=== PATIENT | female | born 1990 | race Caucasian/White ===

== ENCOUNTER → 2018-04-25 | Outpatient (CLI) | payer OTHER | LOC: HPND 12:56 | PROVIDERS: ATTEND Obstetrics & Gynecology | DX: O35.8XX0 Maternal care for other (suspected) fetal abnormality and damage, not applicable or unspecified (principal) | CPT/HCPCS: 76811; 76825; 76827; 93325 ==

== ENCOUNTER 2018-08-21 20:41 | Inpatient (IN) ==
[2018-08-21] MEDS ORDERED: Oxytocin 30 Units/500ml Premix 30 UNITS/500 ML BAG IV.CONT PRN (21:44)
[2018-08-21] MEDS ORDERED: fentaNYL Citrate Inj 100 MCG/2 ML Ampul IV.PUSH PRN ×2 (21:59)
[2018-08-21] MEDS ORDERED: Oxytocin 30 Units/500ml Premix 30 UNITS/500 ML BAG IV.SIG ONE (21:59)
[2018-08-21] MEDS ORDERED: Naloxone Inj 0.4 MG/ML Vial IV.PUSH PRN (21:59)
[2018-08-21] MEDS ORDERED: Sod Chloride 0.9% Inj 1,000 ML IV.CONT PRN (21:59)
[2018-08-21] MEDS ORDERED: Sodium Chlor 0.9% Inj 500 ML IV.SIG PRN (21:59)
[2018-08-21] MEDS ORDERED: Citric Acid/Sodium Citrate Liq 30 ML UDC PO SCH (22:00)
[2018-08-21 22:04] LABS: Baso # (Auto) 0.1 th/mm3 (0.0-0.2); Baso % (Auto) 0.5 % (0.0-2.0); Eos # (Auto) 0.1 th/mm3 (0.0-0.4); Hematocrit 29.9 % (35.0-46.0); Hemoglobin 9.9 gm/dL (11.6-15.3); Lymph # (Auto) 2.1 th/mm3 (1.0-4.8); Lymph % (Auto) 21.1 % (9.0-44.0); Mean Corpuscular HGB Conc 33.1 % (32.0-36.0); Mean Corpuscular Hemoglobin 26.7 pg (27.0-34.0); Mean Corpuscular Volume 80.6 fL (80.0-100.0); Mean Platelet Volume 7.7 fL (7.0-11.0); Mono # (Auto) 0.8 th/mm3 (0.0-0.9); Mono % (Auto) 7.8 % (0.0-8.0); Neut # (Auto) 6.9 th/mm3 (1.8-7.7); Neut % (Auto) 69.6 % (16.0-70.0); Platelet Count 177 th/mm3 (150-450); Red Blood Count 3.71 mil/mm3 (4.00-5.30); Red Cell Distribution Width 14.1 % (11.6-17.2); White Blood Count 9.9 th/mm3 (4.0-11.0)
[2018-08-21 22:21] LABS: Bilirubin,Urine Negative (Negative); Clarity,Urine Clear (Clear); Color,Urine Straw (Yellw/Straw); Glucose,Urine (UA) Negative (Negative); Leukocyte Esterase,Urine Trace (Negative); Mucus,Urine Few /lpf (Occasional); Nitrite,Urine Negative (Negative); Specific Gravity,Urine 1.006 (1.002-1.035); Squamous Epithelial Cell,Urine 2 /hpf (0-5)
[2018-08-21 22:24] LABS: Amphetamine Urine With Conf Neg (Neg); Benzodiazepine Urine With Conf Neg (Neg)
[2018-08-22] MEDS ORDERED: fentaNYL 2MCG-Bupiv 0.125% Epi 150 ML EPIDURAL ONE (02:04)
[2018-08-22] MEDS ORDERED: Lidocaine PF 1.5% Inj 20 ML Ampule ONE (02:26)
[2018-08-22] MEDS ORDERED: Lidocaine PF 1% Inj 10 ML Amp ONE (02:26)
[2018-08-22] MEDS ORDERED: Lidocaine 2%/Epinephrine 1:200,000 PF Inj 20 ML Vial ONE (02:27)
[2018-08-22] MEDS ORDERED: Penicillin G Potassium Inj 5,000,000 UNIT in Sodium Chloride 0.9% Inj 100 ML IV.SIG ONE (04:00)
[2018-08-22] MEDS ORDERED: fentaNYL 2MCG-Bupiv 0.125% Epi 150 ML EPIDURAL PRN (04:07)
[2018-08-22] MEDS ORDERED: fentaNYL Citrate Inj 100 MCG/2 ML Ampul EPIDURAL ONE (04:07)
[2018-08-22] MEDS ORDERED: Lidocaine 1% Inj 50 ML Vial ONE (06:26)
[2018-08-22] MEDS ORDERED: Ketorolac Inj 30 MG/ML (IVP) Vial IM ONE (07:25)
[2018-08-22] MEDS ORDERED: Lidocaine 2%/Epinephrine 1:200,000 PF Inj 20 ML Vial INFILTRATN ONE (07:25)
[2018-08-22] MEDS ORDERED: Phenylephrine/NS 1000 MCG/10ML Syringe IV.PUSH ONE (07:25)
[2018-08-22] MEDS ORDERED: Morphine Sulfate PF Inj 5 MG/10 ML Ampul ONE (07:27)
[2018-08-22] MEDS ORDERED: Penicillin G Potassium Inj 2,500,000 UNIT in Sodium Chlor 0.9% Inj 100 ML IV.SIG SCH (08:00)
[2018-08-22] MEDS ORDERED: fentaNYL Citrate Inj 100 MCG/2 ML Ampul ONE (08:04)
[2018-08-22 08:07] LABS: Cord Arterial Blood HCO3 23.1
[2018-08-22] MEDS ORDERED: Oxytocin 30 Units/500ml Premix 30 UNITS/500 ML BAG IV.SIG ONE (08:48)
--- NOTE | 2018-08-22 08:54 | P.OP ---
- Preoperative Diagnosis (1) Previous section complicating (2) Non-reassuring heart rate or rhythm affecting management of fetus - Postoperative Diagnosis (1) Non-reassuring heart rate or rhythm affecting management of fetus (2) Previous section complicating Date of procedure: 08/22/18 Procedure: Repeat LTCS Anesthesia: epidural Surgeon: Misha Husain MD Estimated blood loss (mL): 600 Operation and Findings: Counts were correct Findings viable male with good tone. Apgars were 8/9 weight was 6/ 12 Normal uterus normal fallopian tubes normal ovaries normal cul-de-sac Some thick adhesions to the anterior uterine wall which were taken down Procedure in detail Taken to the operating room identified by name band and verbally and given a spinal anesthetic. She was prepped and draped in the usual sterile manner for a section. A time out was taken. The old incision was excised sharply and the Pfannenstiel incision was made and carried down to the fascia the fascia was nicked bilaterally and the fascia was taken off the rectus muscle by blunt and sharp dissection. The rectus muscles were spread bluntly and the peritoneum was entered under direct vision. The incision was extended with care to avoid the urinary bladder. A bladder blade was placed and a bladder flap was created in the usual fashion. There was some thick adhesions to the anterior uterine wall which were taken down just prior to the performing the bladder flap. The lower uterine segment was then incised sharply in a transverse manner and taken down in the midline until the uterine cavity was entered. The incision was extended with the surgeon's fingers. The vertex was grasped and with fundal pressure the vertex was delivered without difficulty hypopharynx and nasopharynx were suctioned and the remainder of the delivered without difficulty. The cord clamping was delayed 45 seconds and then the cord was clamped cut and the was handed over to the resuscitation team cord blood was obtained the placenta was removed manually and the uterus was curettaged twice with a wet lap. The uterus was delivered from the abdomen. The uterine incision was repaired with 0 Vicryl in a running fashion in 2 layers the second layer imbricating the first. The cul- de-sac and gutters were cleaned of blood and debris the uterus was delivered back into the abdomen. The rectus muscles were reapproximated with 0 Vicryl in a running the fascia was repaired with 0 Vicryl from lateral to midline bilaterally. The subcutaneous layer was repaired with a 3-0 Vicryl. The skin was repaired with a 4-0 Monocryl in a subcuticular manner. Patient tolerated the procedure well and went to recovery room in good condition.
[2018-08-22] MEDS ORDERED: Oxytocin 30 Units/500ml Premix 30 UNITS/500 ML BAG ONE (09:29)
--- NOTE | 2018-08-22 12:04 | P.HP ---
History of Present Illness Service: labor and delivery Primary Care Physician: No Primary Care Physician Chief Complaint: admitted for induction of labor History of Present Illness: previous c section, now 40 + weeks being admitted for low dose pitocin induction GBS + cervix in office on 08/20/18 was - Diagnosis (1) Term (2) Previous section complicating Inpatient Certification: I certify that the inpatient services were ordered in accordance with Medicare regulations governing the order. This includes certification that hospital inpatient services are reasonable and necessary and in the case of services not specified as inpatient-only under 42 CFR 419.22(n), that they are appropriately provided as inpatient services in accordance to with the 2-midnight benchmark under 43 CFR 412.3(e) Estimated Total Length of Stay (Days): 3 Plans for Post Hospital Care: Home Review of Systems All other systems reviewed negative except as stated in HPI [facility] - History History Provided By: Medical Record - Medical History Medical History: Medical History (Last Updated 08/22/18 @ 11:59 by PETER Verde) Anemia - Surgical History Surgical History: Surgical History (Last Updated 08/22/18 @ 11:59 by PETER Verde) Previous section - Family History Family History: Family History (Last Updated 08/22/18 @ 11:59 by PETER Verde) Father Hypertension Aunt Breast cancer Colon cancer Melanoma - Social History I have reviewed the patient's Social History: Yes - Tobacco History Second Hand Smoke Exposure: No Tobacco Use In Past 30 Days: No Smoking Status: Never smoker - Alcohol History How Often Do You Have a Drink Containing Alcohol: Never - Travel History History of Recent Travel: No Recent Travel in the [place] Within the Last 8 Weeks: No Recent Travel Out of the Country Within the Last 8 Weeks: No Medications and Allergies Active Medications: Active Medications Diphtheria/Pertussis/Tetanus Vacc (Boostrix Vaccine Inj) 0.5 ml IM .ONCE ONE Stop: 08/23/18 16:01 Ephedrine Sulfate (Ephedrine/Ns Syringe) 10 mg IV.PUSH UNSCH PRN PRN Reason: SEE LABEL COMMENTS Stop: 08/23/18 04:07 Fentanyl/Bupivacaine/Sodium Chlor (Fentanyl 2 Mcg-Bupiv 0.125% Epi) 150 mls @ 12 mls/hr EPIDURAL PRN PRN PRN Reason: for Labor Pain Cefazolin Sodium 1,000 mg/ (Sodium Chloride) 100 mls @ 200 mls/hr IV.SIG Q8H [facility] Stop: 08/22/18 19:29 Last Admin: 08/22/18 11:32 Dose: 200 mls/hr Lactated Ringer's (Lr 1000 Ml Inj) 1,000 mls @ 100 mls/hr IV.CONT .Q10H [facility] Stop: 08/23/18 09:47 Oxytocin (Pitocin 30 Units/Ns 500 Ml Premix) 30 units in 500 mls @ 100 mls/hr IV.SIG ONCE ONE Stop: 08/22/18 13:47 Last Admin: 08/22/18 09:48 Dose: 100 mls/hr Oxytocin (Pitocin 30 Units/Ns 500 Ml Premix) 30 units in 500 mls @ 100 mls/hr IV.SIG UNSCH PRN PRN Reason: Heavy bleeding Ibuprofen (Motrin) 800 mg PO Q8H PRN PRN Reason: cramping Measles/Mumps/Rubella Vaccine Live (M-M-R Ii Vaccine Inj) 0.5 ml SQ .ONCE ONE Stop: 08/23/18 16:01 Miscellaneous Information (Misc Information) 1 each OTHER UNSCH PRN PRN Reason: SEE LABEL COMMENTS Stop: 08/23/18 04:07 Miscellaneous Information (Misc Information) 1 each OTHER UNSCH PRN PRN Reason: SEE LABEL COMMENTS Stop: 08/23/18 04:07 Oxycodone/Acetaminophen (Percocet 5/325 Mg) 1 tab PO Q4H PRN PRN Reason: PAIN SCALE 3 TO 5 Oxycodone/Acetaminophen (Percocet 5/325 Mg) 2 tab PO Q4H PRN PRN Reason: PAIN SCALE 6 TO 10 Vit/Calcium/Iron/Folic Ac (Stuartnatal Plus 3) 1 tab PO DAILY [facility] Senna/Docusate Sodium (Radha-Colace) 2 tab PO Q12H PRN PRN Reason: CONSTIPATION Sodium Chloride (Ns Flush) 2 ml IV.FLUSH BID R[facility]AN Sodium Chloride (Ns Flush) 2 ml IV.FLUSH PRN PRN PRN Reason: FLUSH AFTER USING IV ACCESS Zolpidem Tartrate (Ambien) 5 mg PO HS PRN PRN Reason: INSOMNIA Allergies Allergy/AdvReac Type Severity Reaction Status Date / Time Penicillins AdvReac Mild Rash Verified 08/21/18 21:32 Home Medications Medication Instructions Recorded Confirmed Type PNV #[id number] acid-[id number] 1 tab PO DAILY 08/21/18 08/21/18 History Exam Vital signs: Vital Signs 08/21/18 21:05 08/21/18 22:44 08/21/18 22:50 Temperature 98.6 F Pulse Rate 93 H 72 Respiratory Rate 18 18 Blood Pressure 120/73 116/65 08/21/18 23:00 08/22/18 00:51 08/22/18 00:52 Temperature 98.6 F 98.3 F Pulse Rate 71 Respiratory Rate 18 Blood Pressure 125/76 08/22/18 01:00 08/22/18 01:15 08/22/18 01:30 Temperature Pulse Rate 85 89 Respiratory Rate 18 Blood Pressure 130/75 128/80 08/22/18 02:02 08/22/18 02:25 08/22/18 02:35 Temperature Pulse Rate 91 H 84 84 Respiratory Rate 18 Blood Pressure 127/82 134/77 145/76 H 08/22/18 02:39 08/22/18 02:40 08/22/18 02:45 Temperature Pulse Rate 79 77 Respiratory Rate 18 Blood Pressure 127/71 119/67 08/22/18 02:47 08/22/18 02:57 08/22/18 02:59 Temperature Pulse Rate 79 78 Respiratory Rate 18 Blood Pressure 114/46 L 103/80 08/22/18 03:10 08/22/18 03:15 08/22/18 03:31 Temperature Pulse Rate 84 83 Respiratory Rate 18 Blood Pressure 113/72 81/43 L 08/22/18 03:36 08/22/18 03:38 08/22/18 03:40 Temperature 98.6 F Pulse Rate 68 92 H Respiratory Rate 18 Blood Pressure 103/74 08/22/18 04:30 08/22/18 04:36 08/22/18 04:40 Temperature Pulse Rate 84 86 89 Respiratory Rate Blood Pressure 101/56 L 105/50 L 08/22/18 04:45 08/22/18 05:01 08/22/18 05:05 Temperature Pulse Rate 81 80 Respiratory Rate 18 18 Blood Pressure 112/56 L 08/22/18 05:10 08/22/18 05:31 08/22/18 05:40 Temperature Pulse Rate 80 85 87 Respiratory Rate 18 Blood Pressure 115/49 L 08/22/18 05:42 08/22/18 06:12 08/22/18 06:21 Temperature 100.0 F H 100.6 F H Pulse Rate 95 H Respiratory Rate 18 Blood Pressure 119/67 08/22/18 06:35 08/22/18 06:45 08/22/18 07:05 Temperature Pulse Rate 103 H 105 H 83 Respiratory Rate 18 18 Blood Pressure 116/68 118/66 08/22/18 07:13 08/22/18 08:45 08/22/18 09:00 Temperature 100.9 F H 99.3 F Pulse Rate 67 78 Respiratory Rate 16 16 Blood Pressure 92/49 L 110/55 L 08/22/18 09:15 08/22/18 09:30 08/22/18 09:45 Temperature 99.4 F Pulse Rate 70 71 69 Respiratory Rate 16 16 16 Blood Pressure 108/55 L 106/39 L 104/56 L 08/22/18 10:24 Temperature 99.3 F Pulse Rate 66 Respiratory Rate 18 Blood Pressure 106/59 L Intake & Output 08/21/18 08/22/18 08/22/18 18:59 06:59 18:59 Intake Total 1000 / 1000 Balance 1000 / 1000 Weight 60.972 kg Intake: IV 1000 / 1000 LR 1000 mL Inj 1,000 ML @ 125 1000 / 1000 mls/hr IV.CONT .Q8H [facility] Rx#: [id number] Other: Weight On Admission 60.972 kg Narrative: pt seen post surgery by tomer gomes - Constitutional no acute distress - Routine HEENT Exam Head: Present: normocephalic ENT: Present: mucous membranes moist - Routine Respiratory Exam Present: CTA bilaterally - Routine Cardiovascular Exam Present: RRR, S1, S2 - Routine Abdominal Exam Present: soft, normoactive bowel sounds Comments: with dressing post surgery - Routine Skin Exam Present: intact Comments: pale - Routine Neurological Exam Present: alert, oriented X3 Results - Labs CBC & Chem 7: 08/23/18 05:12 Labs: Laboratory Results - last 24 hr 08/21/18 08/21/18 08/21/18 21:30 21:30 21:30 WBC 9.9 RBC 3.71 L Hgb 9.9 L Hct 29.9 L MCV 80.6 MCH 26.7 L MCHC 33.1 RDW 14.1 Plt Count 177 MPV 7.7 Neut % (Auto) 69.6 Lymph % (Auto) 21.1 [place] % (Auto) 7.8 Eos % (Auto) 1.0 Baso % (Auto) 0.5 Neut # (Auto) 6.9 Lymph # (Auto) 2.1 [place] # (Auto) 0.8 Eos # (Auto) 0.1 Baso # (Auto) 0.1 WBC Differential . Differential Comment Auto diff final Puncture Site Cord ABG pH Cord ABG pCO2 Cord ABG pO2 Cord ABG HCO3 Cord ABG Base Excess Cord ABG O2 Sat Urine Color Urine Clarity Urine pH Ur Specific [place] Urine Protein Urine Glucose (UA) Urine Ketones Urine Occult Blood Urine Nitrate Urine Bilirubin Urine Urobilinogen Ur Leukocyte Esterase Urine RBC Urine WBC Ur Squamous Epith Cells Urine Mucus Micro UA Comment Ur Microscopic Review Urine Culture Comments Urine Opiates Screen Neg Ur Barbiturates Screen Neg Ur Amphetamine Screen Neg U Benzodiazepines Scrn Neg Urine Cocaine Screen Neg U Cannabinoids Screen Neg Blood Type A Positive Blood Type Recheck Required 08/21/18 08/22/18 21:30 07:55 WBC RBC Hgb Hct MCV MCH MCHC RDW Plt Count MPV Neut % (Auto) Lymph % (Auto) [place] % (Auto) Eos % (Auto) Baso % (Auto) Neut # (Auto) Lymph # (Auto) [place] # (Auto) Eos # (Auto) Baso # (Auto) WBC Differential Differential Comment Puncture Site Cord blood Cord ABG pH 7.256 Cord ABG pCO2 53.8 Cord ABG pO2 13.2 Cord ABG HCO3 23.1 Cord ABG Base Excess -3.0 Cord ABG O2 Sat 17.2 Urine Color Straw Urine Clarity Clear Urine pH 6.0 Ur Specific [place] 1.006 Urine Protein Negative Urine Glucose (UA) Negative Urine Ketones Negative Urine Occult Blood Small H Urine Nitrate Negative Urine Bilirubin Negative Urine Urobilinogen Less than 2 Ur Leukocyte Esterase Trace H Urine RBC Less than 1 Urine WBC 2 Ur Squamous Epith Cells 2 Urine Mucus Few H Micro UA Comment Culture not ind Ur Microscopic Review Not Reportable Urine Culture Comments Culture not ind Urine Opiates Screen Ur Barbiturates Screen Ur Amphetamine Screen U Benzodiazepines Scrn Urine Cocaine Screen U Cannabinoids Screen Blood Type Blood Type Recheck Caprini VTE Risk Assessment Caprini VTE Risk Assessment: No/Low Risk (score <= 1) Caprini Risk Assessment Model: Point Value = 1 Point Value = 2 Point Value = 3 Point Value = 5 Age 41-60 Minor surgery BMI > 25 kg/m2 Swollen legs Varicose veins or History of unexplained or recurrent spontaneous Oral contraceptives or hormone replacement Sepsis (< 1 month) Serious lung disease, including pneumonia (< 1 month) Abnormal pulmonary function Acute myocardial infarction Congestive heart failure (< 1 month) History of inflammatory bowel disease Medical patient at bed rest Age 61-74 Arthroscopic surgery Major open surgery (> 45 min) Laparoscopic surgery (> 45 min) Malignancy Confined to bed (> 72 hours) Immobilizing plaster cast Central venous access Age >= 75 History of VTE Family history of VTE Factor V Leiden Prothrombin [id number] Lupus anticoagulant Anticardiolipin antibodies Elevated serum homocysteine Heparin-induced thrombocytopenia Other congenital or acquired thrombophilia Stroke (< 1 month) Elective arthroplasty Hip, pelvis, or leg fracture Acute spinal cord injury (< 1 month) Prophylaxis Regimen: Total Risk Factor Score Risk Level Prophylaxis Regimen 0-1 Low Early ambulation 2 Moderate Order ONE of the following: *Sequential Compression Device (SCD) *Heparin 5000 units SQ BID 3-4 Higher Order ONE of the following medications: *Heparin 5000 units SQ TID *Enoxaparin/Lovenox 40 mg SQ daily (WT < 150 kg, CrCl > 30 mL/min) *Enoxaparin/Lovenox 30 mg SQ daily (WT < 150 kg, CrCl > 10-29 mL/min) *Enoxaparin/Lovenox 30 mg SQ BID (WT < 150 kg, CrCl > 30 mL/min) AND/OR *Sequential Compression Device (SCD) 5 or more Highest Order ONE of the following medications: *Heparin 5000 units SQ TID (Preferred with Epidurals) *Enoxaparin/Lovenox 40 mg SQ daily (WT < 150 kg, CrCl > 30 mL/min) *Enoxaparin/Lovenox 30 mg SQ daily (WT < 150 kg, CrCl > 10-29 mL/min) *Enoxaparin/Lovenox 30 mg SQ BID (WT < 150 kg, CrCl > 30 mL/min) AND *Sequential Compression Device (SCD) Assessment and Plan - Assessment (1) Term Code(s): Z34.80 - Encounter for supervision of other normal , unspecified trimester Status: Acute (2) Previous section complicating Code(s): O34.219 - Maternal care for unspecified type scar from previous delivery Status: Acute - Plan attempted, repeat c section preformed Code Status: full code Discharge Planning: consider dc in 2 days
[2018-08-22] MEDS ORDERED: Oxytocin 30 Units/500ml Premix 30 UNITS/500 ML BAG IV.SIG PRN (13:48)
[2018-08-22] MEDS: Prenatal Vit/Ca/Iron/Folic Acid Tablet PO SCH (13:58)
[2018-08-22] MEDS ORDERED: Zolpidem Tartrate 5 MG Tablet PO PRN (21:00)
[2018-08-22] MEDS: Senna/Docusate Sodium 8.6/50 MG Tablet PO PRN (21:15)
[2018-08-23 05:51] LABS: Baso % (Auto) 0.1 % (0.0-2.0); Eos % (Auto) 0.3 % (0.0-4.0); Hematocrit 21.3 % (35.0-46.0); Lymph # (Auto) 1.9 th/mm3 (1.0-4.8); Lymph % (Auto) 14.2 % (9.0-44.0); Mean Corpuscular HGB Conc 32.3 % (32.0-36.0); Mean Corpuscular Hemoglobin 26.5 pg (27.0-34.0); Mean Corpuscular Volume 81.9 fL (80.0-100.0); Mean Platelet Volume 7.1 fL (7.0-11.0); Mono # (Auto) 0.9 th/mm3 (0.0-0.9); Mono % (Auto) 6.9 % (0.0-8.0); Neut # (Auto) 10.5 th/mm3 (1.8-7.7); Neut % (Auto) 78.5 % (16.0-70.0); Platelet Count 121 th/mm3 (150-450); White Blood Count 13.4 th/mm3 (4.0-11.0)
[2018-08-23 05:58] LABS: Hemoglobin 6.9 gm/dL (11.6-15.3)
[2018-08-23 08:14] VITALS: O2SAT 97
--- NOTE | 2018-08-23 10:15 | P.PNOB ---
Subjective Post op day: 1 Objective Vital Signs/I&O: Vital Signs 08/22/18 10:24 08/22/18 15:00 08/22/18 20:00 Temperature 99.3 F 98.4 F 99.1 F Pulse Rate 66 80 75 Respiratory Rate 18 16 17 Blood Pressure 106/59 L 127/69 108/58 L Pulse Oximetry 08/23/18 00:00 08/23/18 03:51 08/23/18 08:00 Temperature 98.3 F 98.2 F 98.1 F Pulse Rate 72 71 71 Respiratory Rate 18 18 Blood Pressure 113/62 93/47 L 111/66 Pulse Oximetry 08/23/18 08:13 Temperature 98.1 F Pulse Rate 71 Respiratory Rate 18 Blood Pressure 106/60 Pulse Oximetry 97 Intake & Output 08/22/18 08/23/18 08/23/18 18:59 06:59 18:59 Intake Total 100 / 100 Balance 100 / 100 Intake: IV 100 / 100 Ancef Inj 1,000 MG In NS Inj 100 / 100 100 ML @ 200 mls/hr IV.SIG Q8H [facility] Rx#:[id number] Result Diagrams: 08/23/18 05:12 Objective Remarks: GENERAL: Well-nourished, well-developed patient. CARDIOVASCULAR: Regular rate and rhythm without murmurs, gallops, or rubs. RESPIRATORY: Breath sounds equal bilaterally. No accessory muscle use. ABDOMEN/GI: Abdomen soft, non-tender, bowel sounds present. Incision: dressing, Clean, dry and intact. Fundus: Firm, non-tender at umbilicus. GENITOURINARY: Light to moderate bleeding. EXTREMITIES: No cyanosis or edema, non-tender, without signs of DVT. Medications and IVs: Active Medications Diphtheria/Pertussis/Tetanus Vacc (Boostrix Vaccine Inj) 0.5 ml IM .ONCE ONE Stop: 08/23/18 16:01 Fentanyl/Bupivacaine/Sodium Chlor (Fentanyl 2 Mcg-Bupiv 0.125% Epi) 150 mls @ 12 mls/hr EPIDURAL PRN PRN PRN Reason: for Labor Pain Oxytocin (Pitocin 30 Units/Ns 500 Ml Premix) 30 units in 500 mls @ 100 mls/hr IV.SIG UNSCH PRN PRN Reason: Heavy bleeding Iron Sucrose 100 mg/ Sodium (Chloride) 105 mls @ 105 mls/hr IV.SIG DAILY [facility] Stop: 08/25/18 09:59 Ibuprofen (Motrin) 800 mg PO Q8H PRN PRN Reason: cramping Last Admin: 08/23/18 08:01 Dose: 800 mg Measles/Mumps/Rubella Vaccine Live (M-M-R Ii Vaccine Inj) 0.5 ml SQ .ONCE ONE Stop: 08/23/18 16:01 Oxycodone/Acetaminophen (Percocet 5/325 Mg) 1 tab PO Q4H PRN PRN Reason: PAIN SCALE 3 TO 5 Last Admin: 08/22/18 16:13 Dose: 1 tab Oxycodone/Acetaminophen (Percocet 5/325 Mg) 2 tab PO Q4H PRN PRN Reason: PAIN SCALE 6 TO 10 Last Admin: 08/23/18 03:20 Dose: 2 tab Vit/Calcium/Iron/Folic Ac (Stuartnatal Plus 3) 1 tab PO DAILY [facility] Last Admin: 08/22/18 13:58 Dose: Not Given Senna/Docusate Sodium (Radha-Colace) 2 tab PO Q12H PRN PRN Reason: CONSTIPATION Last Admin: 08/22/18 21:15 Dose: 2 tab Sodium Chloride (Ns Flush) 2 ml IV.FLUSH BID [facility] Last Admin: 08/22/18 13:58 Dose: Not Given Sodium Chloride (Ns Flush) 2 ml IV.FLUSH PRN PRN PRN Reason: FLUSH AFTER USING IV ACCESS Zolpidem Tartrate (Ambien) 5 mg PO HS PRN PRN Reason: INSOMNIA Assessment and Plan - Diagnosis (1) Term Code(s): Z34.80 - Encounter for supervision of other normal , unspecified trimester Status: Acute (2) Previous section complicating Code(s): O34.219 - Maternal care for unspecified type scar from previous delivery Status: Acute Plan: routine care (3) Severe anemia Code(s): D64.9 - Anemia, unspecified Status: Acute Plan: iv Venofer x 3 days repeat cbc in am - Plan POD #1 pt feeling "better than yesterday" pain well managed with oral pain medication HGB 6.9 will give Venofer and repeat in am discussed pt may need blood transfusion pt has been ambulatory to bathroom and denies dizziness, SOB, or chest pain, advised to move slowly pt to shower and remove dressing today infant routine Discharge Planning: consider dc in 2 days
[2018-08-23] MEDS: Senna/Docusate Sodium 8.6/50 MG Tablet PO PRN (14:06)
[2018-08-23] MEDS: Prenatal Vit/Ca/Iron/Folic Acid Tablet PO SCH (14:06)
[2018-08-23] MEDS: Iron Sucrose Inj 100 MG in Sodium Chlor 0.9% Inj 100 ML IV.SIG SCH (14:08)
[2018-08-23] MEDS ORDERED: Diphtheria/Tetanus/Pertussis Vaccine Inj 0.5 ML Syringe IM ONE (16:00)
[2018-08-23] MEDS ORDERED: Measles/Mumps/Rubella Vaccine Inj 0.5 ML Vial SQ ONE (16:00)
[2018-08-24 06:07] LABS: Hematocrit 21.2 % (35.0-46.0); Mean Corpuscular Hemoglobin 26.8 pg (27.0-34.0); Mean Corpuscular Volume 81.3 fL (80.0-100.0); Mean Platelet Volume 7.1 fL (7.0-11.0); Platelet Count 130 th/mm3 (150-450); Red Cell Distribution Width 14.3 % (11.6-17.2); White Blood Count 9.7 th/mm3 (4.0-11.0)
[2018-08-24] MEDS: Prenatal Vit/Ca/Iron/Folic Acid Tablet PO SCH (09:19)
[2018-08-24] MEDS: Senna/Docusate Sodium 8.6/50 MG Tablet PO PRN ×2 (09:19→21:37)
--- NOTE | 2018-08-24 12:42 | P.PNOB ---
Subjective Post op day: 2 Objective Vital Signs/I&O: Vital Signs 08/23/18 20:00 08/24/18 08:00 Temperature 98.2 F 98.1 F Pulse Rate 85 73 Respiratory Rate 18 20 Blood Pressure 106/63 109/59 L Result Diagrams: 08/24/18 05:25 Objective Remarks: GENERAL: Well-nourished, well-developed patient. CARDIOVASCULAR: Regular rate and rhythm without murmurs, gallops, or rubs. RESPIRATORY: Breath sounds equal bilaterally. No accessory muscle use. ABDOMEN/GI: Abdomen soft, non-tender, bowel sounds present. Incision: Clean, dry and intact. Fundus: Firm, non-tender at umbilicus. GENITOURINARY: Light to moderate bleeding. EXTREMITIES: No cyanosis or edema, non-tender, without signs of DVT. Medications and IVs: Active Medications Fentanyl/Bupivacaine/Sodium Chlor (Fentanyl 2 Mcg-Bupiv 0.125% Epi) 150 mls @ 12 mls/hr EPIDURAL PRN PRN PRN Reason: for Labor Pain Oxytocin (Pitocin 30 Units/Ns 500 Ml Premix) 30 units in 500 mls @ 100 mls/hr IV.SIG UNSCH PRN PRN Reason: Heavy bleeding Iron Sucrose 100 mg/ Sodium (Chloride) 105 mls @ 105 mls/hr IV.SIG Q24H [facility] Stop: 08/25/18 11:59 Last Infusion: 08/23/18 15:08 Dose: 105 mls/hr Ibuprofen (Motrin) 800 mg PO Q8H PRN PRN Reason: cramping Last Admin: 08/24/18 08:38 Dose: 800 mg Oxycodone/Acetaminophen (Percocet 5/325 Mg) 1 tab PO Q4H PRN PRN Reason: PAIN SCALE 3 TO 5 Last Admin: 08/23/18 14:06 Dose: 1 tab Oxycodone/Acetaminophen (Percocet 5/325 Mg) 2 tab PO Q4H PRN PRN Reason: PAIN SCALE 6 TO 10 Last Admin: 08/23/18 03:20 Dose: 2 tab Vit/Calcium/Iron/Folic Ac (Stuartnatal Plus 3) 1 tab PO DAILY [facility] Last Admin: 08/24/18 09:19 Dose: 1 tab Senna/Docusate Sodium (Radha-Colace) 2 tab PO Q12H PRN PRN Reason: CONSTIPATION Last Admin: 08/24/18 09:19 Dose: 2 tab Sodium Chloride (Ns Flush) 2 ml IV.FLUSH BID [facility] Last Admin: 08/24/18 00:23 Dose: 2 ml Sodium Chloride (Ns Flush) 2 ml IV.FLUSH PRN PRN PRN Reason: FLUSH AFTER USING IV ACCESS Zolpidem Tartrate (Ambien) 5 mg PO HS PRN PRN Reason: INSOMNIA Assessment and Plan - Diagnosis (1) Term Code(s): Z34.80 - Encounter for supervision of other normal , unspecified trimester Status: Resolved (2) Previous section complicating Code(s): O34.219 - Maternal care for unspecified type scar from previous delivery Status: Acute Plan: routine care (3) Severe anemia Code(s): D64.9 - Anemia, unspecified Status: Acute Plan: iv Venofer today, treat PP - Plan POD #2 pt feeling well pain well managed with oral pain medication HGB stable at 7.0, will give 2nd dose of Venofer pt has been ambulatory denies dizziness, SOB, or chest pain routine Discharge Planning: dc home tomorrow
--- NOTE | 2018-08-24 12:49 | P.DS ---
Date of admission: 08/21/18 20:41 Primary care physician: Lindsey Primary Care Physician Brief History from admission: previous c section, now 40 + weeks being admitted for low dose pitocin induction GBS + cervix in office on 08/20/18 was DS: Diagnosis - Discharge Diagnosis (2) Previous section complicating Status: Acute (3) Severe anemia Status: Acute DS: Medications - Discharge Medications Prescriptions: ibuprofen 800 mg PO Q8H PRN #30 tab PRN Reason: cramping oxycodone-acetaminophen 1 tab PO Q4H PRN #20 tab PRN Reason: moderate pain DS: Summary Hospital Course: attempt to repeat c section routine care - Time Spent with Patient Total time spent providing and/or coordinating discharge services: Less than 30 minutes Exam Vital signs: Vital Signs 08/23/18 20:00 08/24/18 08:00 Temperature 98.2 F 98.1 F Pulse Rate 85 73 Respiratory Rate 18 20 Blood Pressure 106/63 109/59 L Results Procedures completed during hospitalization: repeat c section Labs on day of discharge: Labs from last 24 hours 08/24/18 05:25 WBC 9.7 RBC 2.60 L Hgb 7.0 L Hct 21.2 L MCV 81.3 MCH 26.8 L MCHC 33.0 RDW 14.3 Plt Count 130 L MPV 7.1 Discharge Plan - Discharge Disposition Patient Disposition: 01 Discharge Home - Discharge Condition Condition: Good - Discharge Order Discharge Orders: Discharge Order (Routine); Ordered 08/25/18 Ordered By: Hermila Henry FOOD SERVICE HELPER Clear for Discharge (Routine); Ordered 08/25/18 Ordered By: Hermila Henry - Discharge Details Anticipated Discharge Date: 08/25/18 - Physicians Team Primary Care Provider: Primary Lindsey Bhatt Attending Provider: Misha Husain Other Providers: [email or web address]-X,Insurance - Rxs /Orders / Referrals /Forms Prescriptions: New ibuprofen 800 mg Tablet 800 mg PO Q8H PRN (Reason: cramping) Qty: 30 RF: 0 oxycodone-acetaminophen 5-325 mg Tablet 1 tab PO Q4H PRN (Reason: moderate pain) Qty: 20 RF: 0 Continue PNV #[id number] acid-omega3 1 tab PO DAILY Referrals: Primary Care Physici,No [Primary Care Provider] - See Instructions Misha Husain MD [Physician] - See Instructions (call to make an appointment to be seen in 1 week) - Discharge Instructions Patient Printed Instructions: Preeclampsia and Eclampsia After Delivery (GEN), (DC) - Post Discharge Care Plan Care Plan Goals: Congratulations on your new baby! We want your recovery to be johnson and trouble free. Please Report the Following Symptoms to Your Doctor: -Temperature above 100.5 degrees -Redness of incision or excessive or foul smelling drainage -Unusual pain or calf pain -Increased vaginal bleeding -Painful or difficulty urinating -Feelings of extreme sadness or anxiety Goals to Promote Your Health * To prevent worsening of your condition and complications * To maintain your health at the optimal level Directions to Meet Your Goals Take your medications as prescribed Follow your dietary instruction Follow activity as directed Ensure plenty of rest for recovery Drink fluids for hydration Keep your appointments as scheduled Take your immunizations and boosters as scheduled If your symptoms worsen call your OB Physician, or go to an Urgent Care Center or Emergency Room Smoking is Dangerous to your health. Avoid second hand smoke Call the 24-hour crisis hotline for domestic abuse at
[2018-08-24] MEDS: Iron Sucrose Inj 100 MG in Sodium Chlor 0.9% Inj 100 ML IV.SIG SCH (15:20)
[2018-08-24 20:49] VITALS: RESP 18
[2018-08-25 08:41] VITALS: BP 104/64; PULSE 67; TEMP 97.9
[2018-08-25] MEDS: Prenatal Vit/Ca/Iron/Folic Acid Tablet PO SCH (08:57)
--- NOTE | 2018-08-25 09:49 | P.PNOB ---
Subjective Post op day: 3 Interval history: feels well when ambulating , Hg=7, getting 3rd dose of venofer before d/c home Objective Vital Signs/I&O: Vital Signs 08/24/18 20:00 08/25/18 08:00 Temperature 98.2 F 97.9 F Pulse Rate 76 67 Respiratory Rate 18 18 Blood Pressure 111/70 104/64 Result Diagrams: 08/24/18 05:25 Objective Remarks: GENERAL: Well-nourished, well-developed patient. CARDIOVASCULAR: Regular rate and rhythm without murmurs, gallops, or rubs. RESPIRATORY: Breath sounds equal bilaterally. No accessory muscle use. ABDOMEN/GI: Abdomen soft, non-tender, bowel sounds present. Incision: Clean, dry and intact. Fundus: Firm, non-tender at umbilicus. GENITOURINARY: Light to moderate bleeding. EXTREMITIES: No cyanosis or edema, non-tender, without signs of DVT. Medications and IVs: Active Medications Fentanyl/Bupivacaine/Sodium Chlor (Fentanyl 2 Mcg-Bupiv 0.125% Epi) 150 mls @ 12 mls/hr EPIDURAL PRN PRN PRN Reason: for Labor Pain Oxytocin (Pitocin 30 Units/Ns 500 Ml Premix) 30 units in 500 mls @ 100 mls/hr IV.SIG UNSCH PRN PRN Reason: Heavy bleeding Iron Sucrose 100 mg/ Sodium (Chloride) 105 mls @ 105 mls/hr IV.SIG Q24H RYAN Stop: 08/25/18 11:59 Last Admin: 08/24/18 15:20 Dose: 105 mls/hr Ibuprofen (Motrin) 800 mg PO Q8H PRN PRN Reason: cramping Last Admin: 08/24/18 21:38 Dose: 800 mg Oxycodone/Acetaminophen (Percocet 5/325 Mg) 1 tab PO Q4H PRN PRN Reason: PAIN SCALE 3 TO 5 Last Admin: 08/24/18 15:19 Dose: 1 tab Oxycodone/Acetaminophen (Percocet 5/325 Mg) 2 tab PO Q4H PRN PRN Reason: PAIN SCALE 6 TO 10 Last Admin: 08/23/18 03:20 Dose: 2 tab Vit/Calcium/Iron/Folic Ac (Stuartnatal Plus 3) 1 tab PO DAILY [facility] Last Admin: 08/25/18 08:57 Dose: 1 tab Senna/Docusate Sodium (Radha-Colace) 2 tab PO Q12H PRN PRN Reason: CONSTIPATION Last Admin: 08/24/18 21:37 Dose: 2 tab Sodium Chloride (Ns Flush) 2 ml IV.FLUSH BID RYAN Last Admin: 08/25/18 08:57 Dose: Not Given Sodium Chloride (Ns Flush) 2 ml IV.FLUSH PRN PRN PRN Reason: FLUSH AFTER USING IV ACCESS Zolpidem Tartrate (Ambien) 5 mg PO HS PRN PRN Reason: INSOMNIA Assessment and Plan - Diagnosis (1) delivery delivered Code(s): O82 - Encounter for delivery without indication Status: Acute (2) Previous section complicating Code(s): O34.219 - Maternal care for unspecified type scar from previous delivery Status: Acute - Plan POD #3 pt feeling well pain well managed with oral pain medication HGB stable at 7.0, will give 3rd dose of Venofer pt has been ambulatory denies dizziness, SOB, or chest pain routine Discharge Planning: dc home today - Attending Attestation pt seen by me
[2018-08-25] MEDS: Iron Sucrose Inj 100 MG in Sodium Chlor 0.9% Inj 100 ML IV.SIG SCH (10:50)
== END 2018-08-25 12:53 | disposition home or self-care (01) ==
LOC: H2E 20:41 → H1EA 08-22 10:41
PROVIDERS: ADMIT Obstetrics & Gynecology; ATTEND Obstetrics & Gynecology